=== PATIENT | female | born 1995 | race African-American/Black ===

== ENCOUNTER 2023-12-05 21:26 | Emergency (ER) | payer OTHER ==
[~2023-12-05] VITALS: Ht 160 cm; Wt 61.5 kg
[2023-12-05 22:52] LABS: BASO % 0.4 % (0.0-1.0); EOS # 0.2 10^3/uL (0.0-0.5); EOS % 3.1 % (0.0-3.0); HEMATOCRIT 38.2 % (36.0-47.0); HEMOGLOBIN 12.9 g/dl (12.0-15.5); LYMPH # 2.7 10^3/uL (1.5-5.0); LYMPH % 50.6 % (24.0-44.0); MEAN CORPUSCULAR HEMOGLOBIN 30.3 pg (27.0-33.0); MEAN CORPUSCULAR HGB CONC 33.8 g/dl (32.0-36.5); MEAN CORPUSCULAR VOLUME 89.7 fl (80.0-96.0); MONO # 0.4 10^3/uL (0.0-0.8); MONO % 6.7 % (2.0-8.0); NEUTROPHILS # 2.1 10^3/uL (1.5-8.5); PLATELET COUNT, AUTOMATED 207 10^3/uL (150-450); RED BLOOD COUNT 4.26 10^6/uL (4.00-5.40); WHITE BLOOD COUNT 5.2 10^3/uL (4.0-10.0)
[2023-12-05 23:10] LABS: CK-MB VALUE MASS < 1.0 NG/ML (<3.6)
[2023-12-05 23:11] LABS: BLOOD UREA NITROGEN 16 MG/DL (9-23); CALCIUM LEVEL 9.2 MG/DL (8.5-10.1); CARBON DIOXIDE LEVEL 27 MMOL/L (20-31); CHLORIDE LEVEL 108 MMOL/L (98-107); CREATININE FOR GFR 0.73 MG/DL (0.55-1.30); GLOMERULAR FILTRATION RATE > 60.0 (>60); GLUCOSE, FASTING 94 MG/DL (60-100); HCG, SERUM QUALITATIVE NEGATIVE (NEGATIVE); POTASSIUM SERUM 4.3 MMOL/L (3.5-5.1); SODIUM LEVEL 140 MMOL/L (136-145)
[2023-12-05 23:15] LABS: CPK CREATINE PHOSPHOKINASE 109 U/L (34-145); MB/CK RELATIVE INDEX 0.91 (< OR =4)
[2023-12-06 00:15] VITALS: TEMP 97.3
[2023-12-06 00:42] LABS: CK-MB VALUE MASS < 1.0 NG/ML (<3.6)
[2023-12-06 00:44] LABS: CPK CREATINE PHOSPHOKINASE 99 U/L (34-145); MB/CK RELATIVE INDEX 1.01 (< OR =4)
[2023-12-06 01:00] VITALS: BP 104/67; O2SAT 98
[2023-12-06] MEDS: KETOROLAC 30 MG/ML 1ML VIAL IV ONE (01:01)
== END 2023-12-06 01:13 | disposition home or self-care (01) ==
LOC: M ED 21:26
DX: M79.601 Pain in right arm (principal); R00.1 Bradycardia, unspecified
CPT/HCPCS: 80048; 82550; 82553; 84484; 84703; 85025; 85379; 93005; 93041; 93971; 96374; 99284; J1885

== ENCOUNTER 2024-02-10 12:20 | Day surgery (SDC) | payer OTHER ==
[~2024-02-10] VITALS: Ht 160 cm; Wt 61.2 kg
[~2024-02-10 12:20] MED LIST: LIDOCAINE 2% 100MG/5ML SDV (FOR ANES.) As Ordered ONE; MIDAZOLAM INJ 2MG/2ML VIAL As Ordered ONE; fentaNYL 100 MCG/2 ML INJECTION As Ordered ONE
[2024-02-10] MEDS ORDERED: propofoL 200 MG/20 ML VIAL As Ordered ONE (14:44)
[2024-02-10] MEDS ORDERED: ONDANSETRON 4MG 2ML VIAL As Ordered ONE (14:44)
[2024-02-10] MEDS ORDERED: ACETAMINOPHEN 1000MG 100ML IV BAG As Ordered ONE (14:44)
[2024-02-10] MEDS ORDERED: KETOROLAC 60MG 2ML VIAL As Ordered ONE (15:12)
[2024-02-10] MEDS: LIDOCAINE W/EPINEPHRINE 1% 20ML VIAL As Ordered ONE (15:20)
[2024-02-10] MEDS ORDERED: ONDANSETRON 4MG 2ML VIAL IV PRN (15:50)
[2024-02-10] MEDS ORDERED: fentaNYL 100 MCG/2 ML INJECTION IV PRN (15:50)
[2024-02-10] MEDS: IODINE STRONG SOLN 15ML BTL As Ordered ONE (16:00)
[2024-02-10] MEDS: oxyCODONE 5MG TAB PO PRN (16:23)
[2024-02-10] MEDS: FLUCONAZOLE 50MG TABLET PO ONE (16:25)
[2024-02-10 17:27] VITALS: BP 117/73; TEMP 97.4; O2SAT 100
== END 2024-02-10 17:50 | disposition home or self-care (01) ==
LOC: M SDC 12:20
PROVIDERS: ATTEND Obstetrics & Gynecology
DX: D06.0 Carcinoma in situ of endocervix (principal)
CPT/HCPCS: 57522; 81025; 88305; 88307; J0131; J1100; J1885; J2250; J2405; J3010

== ENCOUNTER → 2024-08-31 | Outpatient (CLI) | payer OTHER | LOC: M WHC 08:07 | PROVIDERS: ATTEND Physician Assistant | DX: N63.15 Unspecified lump in the right breast, overlapping quadrants (principal); R92.343 Mammographic extreme density, bilateral breasts; N64.52 Nipple discharge | CPT/HCPCS: 76642; 77066; G0279 ==